=== PATIENT | male | born 1975 | race American Indian/Alaskan Native ===

== ENCOUNTER 2019-02-24 18:38 | Emergency (ER) | payer SELFPAY ==
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
[2019-02-24] MEDS ORDERED: DECADRON IM ONE (20:35)
[2019-02-24] MEDS ORDERED: TORADOL IM ONE (20:36)
[2019-02-24] MEDS ORDERED: FLEXERIL PO ONE (20:36)
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
[2019-02-24 21:04] VITALS: BP 128/76
== END 2019-02-24 21:03 | disposition home or self-care (01) ==
LOC: ED 18:38
DX: M54.5 Low back pain (principal); Z53.21 Procedure and treatment not carried out due to patient leaving prior to being seen by health care provider
CPT/HCPCS: J1100; J1885